=== PATIENT | female | born 1945 | race Caucasian/White ===

== ENCOUNTER → 2016-09-21 | Outpatient (CLI) | payer MEDICARE, OTHER | END | disposition home or self-care (01) | LOC: GMAJ 10:47 | PROVIDERS: ATTEND Family Medicine | DX: E03.9 Hypothyroidism, unspecified (principal) ==

== ENCOUNTER → 2016-09-24 | Outpatient (CLI) | payer MEDICARE, OTHER ==
--- NOTE | 2016-09-25 15:10 | US ---
EXAM DESCRIPTION: Soft Tissue,Extremity CLINICAL HISTORY: OTHER BENIGN NEOPLASM OF SKIN, UNSPECIFIED COMPARISON: None. TECHNIQUE: 2-D sonography FINDINGS: Sonography demonstrates a small superficial hole in the skin measuring 4 x 5 x 1 mm. No deep abnormality is seen. No fluid is detected. IMPRESSION: A small hole is observed in the skin. The exam is otherwise unremarkable. No deep abnormality is seen by sonography. Electronically signed by: Eloy Franz MD 09/25/2016 2:37 PM [employer]OUTE SALES DELIVERY [employer]IVER
--- NOTE | 2016-09-28 00:53 | US ---
EXAM DESCRIPTION: Soft Tissue,Extremity CLINICAL HISTORY: OTHER BENIGN NEOPLASM OF SKIN, UNSPECIFIED COMPARISON: None. TECHNIQUE: 2-D sonography FINDINGS: Sonography demonstrates a small superficial hole in the skin measuring 4 x 5 x 1 mm. No deep abnormality is seen. No fluid is detected. IMPRESSION: A small hole is observed in the skin. The exam is otherwise unremarkable. No deep abnormality is seen by sonography. Electronically signed by: Eloy Franz MD 09/25/2016 2:37 PM ELECTRO MECHANICAL ASSEMBLER
--- NOTE | 2016-09-28 00:54 | US ---
EXAM DESCRIPTION: Soft Tissue,Extremity CLINICAL HISTORY: OTHER BENIGN NEOPLASM OF SKIN, UNSPECIFIED COMPARISON: None. TECHNIQUE: 2-D sonography FINDINGS: Sonography demonstrates a small superficial hole in the skin measuring 4 x 5 x 1 mm. No deep abnormality is seen. No fluid is detected. IMPRESSION: A small hole is observed in the skin. The exam is otherwise unremarkable. No deep abnormality is seen by sonography. Electronically signed by: Eloy Franz MD 09/25/2016 2:37 PM GUEST SERVICE TEAM LEADER
== END | disposition home or self-care (01) ==
LOC: US 10:57
PROVIDERS: ATTEND Family Medicine
DX: D23.9 Other benign neoplasm of skin, unspecified (principal)

== ENCOUNTER → 2017-09-28 | Outpatient (CLI) | payer MEDICARE, OTHER | LOC: GMAJ 11:36 | PROVIDERS: ATTEND Family Medicine | DX: E03.9 Hypothyroidism, unspecified (principal) ==

== ENCOUNTER → 2017-10-07 | Outpatient (CLI) | payer MEDICARE, OTHER ==
--- NOTE | 2017-10-11 11:21 | MAM ---
EXAM DESCRIPTION: 3D Screening BILATERAL : Digital Mammography. CLINICAL HISTORY: 71 years Female SCREENING . No complaints. No family history of breast cancer. Postmenopausal. No HRT. Prior left breast biopsy. COMPARISON: 2-D digital screening bilateral study 01/14/2009. No prior reports available. TECHNIQUE: Bilateral CC and MLO projection full-field images, 3-D tomosynthesis digital mammographic technique. Also bilateral synthesized CC/ MLO full-field images. CAD not utilized. FINDINGS: The breast parenchymal density pattern is: Scattered areas of fibroglandular density. No skin thickening or nipple retraction bilateral solitary microcalcifications. Bilateral intramammary lymph nodes. No focal, stellate mass or density, focal asymmetry , and no suspicious microcalcifications bilaterally. Stable mammograms compared to prior study, taking into account differences in mammographic technique IMPRESSION: BI-RADS CATEGORY: 2 - BENIGN FINDINGS. FOLLOW UP: Routine digital bilateral screening, one year interval from September 2017. Written communication explaining the IMPRESSION and follow-up, will be mailed to the patient and referring health care provider. According to the [employer], yearly mammograms are recommended starting at age 40 and continuing as long as a woman is in good health. Any breast change noted on a breast self-exam should be reported promptly to the patient's healthcare provider. Breast MRI is recommended for women with an approximately 20-25% or greater lifetime risk of breast cancer, including women with a strong family history of breast or ovarian cancer and women who have been treated for Hodgkin's disease. A negative mammographic report should not delay tissue diagnosis in patients with significant clinical history or physical findings. Extremely dense breast tissue limits the sensitivity of digital mammography. Electronically signed by: Pollo Juarez MD 10/11/2017 11:20 AM CDT
== END ==
LOC: MAMMO 10:04
PROVIDERS: ATTEND Family Medicine
DX: Z12.31 Encounter for screening mammogram for malignant neoplasm of breast (principal)

== ENCOUNTER → 2018-10-05 | Outpatient (CLI) | payer MEDICARE, OTHER | LOC: GMAJ 14:16 | PROVIDERS: ATTEND Family Medicine | DX: E03.9 Hypothyroidism, unspecified (principal) ==

== ENCOUNTER → 2019-10-16 | Outpatient (CLI) | payer MEDICARE, OTHER | DX: E03.8 Other specified hypothyroidism (principal); E78.2 Mixed hyperlipidemia ==